=== PATIENT | female | born 1995 | race Caucasian/White ===

== ENCOUNTER → 2017-10-24 | Emergency (ER) | payer OTHER ==
[~2017-10-24] VITALS: Ht 162.6 cm; Wt 49.4 kg
[~2017-10-24] MED LIST: AVIANE-28 TABL1 EACH; KEFLEX500 MG PO; PROTONIX20 MG; TRAMADOL HCL50 MG PO
== END | disposition home or self-care (01) ==
LOC: ER 08:31
DX: K58.9 Irritable bowel syndrome, unspecified (principal)

== ENCOUNTER 2017-10-25 05:36 | Emergency (ER) | payer OTHER ==
[~2017-10-25] VITALS: Ht 162.6 cm; Wt 49.4 kg
[~2017-10-25 05:36] MED LIST changes: -KEFLEX500 MG PO; -TRAMADOL HCL50 MG PO
[2017-10-26] MEDS ORDERED: KEFLEX500 MG PO (14:33)
[2017-10-26] MEDS ORDERED: TRAMADOL HCL50 MG PO (14:33)
== END 2017-10-26 14:32 | disposition home or self-care (01) ==
LOC: ER 05:36
DX: N20.1 Calculus of ureter (principal); R10.2 Pelvic and perineal pain